=== PATIENT | female | born 1955 | race Caucasian/White ===

== ENCOUNTER 2018-09-08 10:11 | Emergency (ER) | payer BC ==
--- OUTSIDE RECORDS SUMMARY | 2018-09-08 10:13 | XMS REPORT | Clinical Summary ---
:1955 Author Organization [facility] Address [address] [place] [address] Care Team Providers Name Role Phone Rodrick Quijano MD Primary Care Provider Allergies No Known Allergies Medications Medication Sig Dispensed Refills Start Date End Date Status ibandronate (BONIVA) Take 150 mg by 0 Active 150 mg tablet mouth every 30 (thirty) days. Take in AM with glass of water prior to food, don't lie down for 30 minutes. Active Problems Problem Noted Date Ganglion cyst of wrist, left 03/08/2016 Social History Tobacco Use Types Packs/Day Years Used Date Never Assessed Sex Assigned at Date Recorded Not on file Job Start Date Occupation Industry Not on file Not on file Not on file Travel History Travel Start Travel End No recent travel history available. Last Filed Vital Signs Not on file Plan of Treatment Health Maintenance Due Date Last Done Comments CERVICAL CANCER SCREENING 1977 BREAST CANCER SCREENING 2006 COLON CANCER SCREENING 2006 SHINGLES VACCINES (1 of 2) 2006 INFLUENZA VACCINE 03/08/2018 Results Not on fileafter 09/07/2017 Insurance Payer Benefit Plan / Group Subscriber ID Type Phone Address BCBS BCBS CHOICE PPO/FEDERAL EMPL PPO xxxxxxxxxxxx PPO Guarantor Name Account Type Relation to Date of Phone Billing Patient Address [place] Self Personal/Family Self [address] (Home) [facility] [phone] [place] [id number] (Work) Advance Directives Patient has advance care planning documents on file. For more information, please contact:[address] [address]
--- NOTE | 2018-09-08 11:11 | ER ---
Nurse's Notes [facility] Name: S[place] Self Age: 63 yrs Sex: Female : 1955 Arrival Date: 09/08/2018 Time: 10:14 Bed 11 Private MD: Diagnosis: Acute pharyngitis Presentation: 09/08 10:15 Presenting complaint: Patient states: Sore throat for the past 2 days. Denies fever. aj1 Transition of care: patient was not received from another setting of care. Onset of symptoms was September 04, 2018. Risk Assessment: Do you want to hurt yourself or someone else? Patient reports no desire to harm self or others. Initial Sepsis Screen: Does the patient meet any 2 criteria? No. Patient's initial sepsis screen is negative. Does the patient have a suspected source of infection? No. Patient's initial sepsis screen is negative. Care prior to arrival: None. 10:15 Method Of Arrival: Ambulatory aj1 10:15 Acuity: WALT 4 aj1 Triage Assessment: 10:16 General: Appears in no apparent distress. comfortable, Behavior is calm, cooperative, aj1 appropriate for age. Pain: Complains of pain in left aspect of posterior pharynx and right aspect of posterior pharynx Pain currently is 3 out of 10 on a pain scale. Neuro: Level of Consciousness is awake, alert, obeys commands. Cardiovascular: Patient's skin is warm and dry. Respiratory: Airway is patent Respiratory effort is even, unlabored, Respiratory pattern is regular, symmetrical. Historical: - Allergies: 10:16 No Known Allergies; aj1 - Home Meds: 10:16 Boniva oral oral [Active]; aj1 - PMHx: 10:16 Osteoporosis; aj1 - Immunization history:: Flu vaccine is up to date. - Social history:: Smoking status: Patient/guardian denies using tobacco. - Ebola Screening: : Patient denies travel to an Ebola-affected area in the 21 days before illness onset. Screenin:26 Abuse screen: Denies threats or abuse. Denies injuries from another. Nutritional aj1 screening: No deficits noted. Tuberculosis screening: No symptoms or risk factors identified. 10:45 Fall Risk None identified. hb Assessment: 10:26 General: Appears in no apparent distress. comfortable, Behavior is calm, cooperative, aj1 appropriate for age. Pain: Complains of pain in right aspect of posterior pharynx and left aspect of posterior pharynx Pain currently is 3 out of 10 on a pain scale. Quality of pain is described as soreness Pain began 2-3 days ago. Neuro: Level of Consciousness is awake, alert, obeys commands. Cardiovascular: Patient's skin is warm and dry. Respiratory: Airway is patent Respiratory effort is even, unlabored, Respiratory pattern is regular, symmetrical. GI: No signs and/or symptoms were reported involving the gastrointestinal system. : No signs and/or symptoms were reported regarding the genitourinary system. EENT: Reports sore throat. Derm: No signs and/or symptoms reported regarding the dermatologic system. Skin is pink, warm \T\ dry. normal. Musculoskeletal: No signs and/or symptoms reported regarding the musculoskeletal system. Circulation, motion, and sensation intact. 11:15 Reassessment: Patient appears in no apparent distress at this time. No changes from hb previously documented assessment. Patient and/or family updated on plan of care and expected duration. Pain level reassessed. Patient is alert, oriented x 3, equal unlabored respirations, skin warm/dry/pink. Vital Signs: 10:16 BP 138 / 90; Pulse 89; Resp 18; Temp 97.3; Pulse Ox 100% on R/A; Weight 58.97 kg (R); aj1 Height 5 ft. 4 in. (162.56 cm) (R); Pain 3/10; 10:16 Body Mass Index 22.31 (58.97 kg, 162.56 cm) aj1 ED Course: 10:14 Patient arrived in ED. mr 10:16 Triage completed. aj1 10:16 Arm band placed on Patient placed in an exam room. aj1 10:26 Patient has correct armband on for positive identification. Call light in reach. aj1 10:26 No provider procedures requiring assistance completed. aj1 10:27 Strep swab sent to lab. aj1 10:36 Maggy Reed FNP-C is PHCP. kb 10:36 Kris Altamirano MD is Attending Physician. kb 11:04 Throat Culture Sent. dm5 11:15 Patient did not have IV access during this emergency room visit. hb 11:23 Kiera Baker, RN is Primary Nurse. hb Administered Medications: No medications were administered Outcome: 11:10 Discharge ordered by . kb 11:15 Discharged to home ambulatory. hb 11:15 Condition: stable 11:15 Discharge instructions given to patient, Instructed on discharge instructions, follow up and referral plans. medication usage, Demonstrated understanding of instructions, follow-up care, medications. 11:23 Patient left the ED. hb Signatures: Maggy Reed, LOCAL AREA NETWORK ADMINISTRATOR-C JOEY-Adrienne Simpson RN RN aj1 Rona Monreal RN RN [email or web address] Rachel Godinez Heather, RN RN hb Corrections: (The following items were deleted from the chart) 13:52 11:30 Reassessment: Patient appears in no apparent distress at this time. No changes hb from previously documented assessment. Patient and/or family updated on plan of care and expected duration. Pain level reassessed. Patient is alert, oriented x 3, equal unlabored respirations, skin warm/dry/pink. hb
--- NOTE | 2018-09-08 11:11 | EDPHYS ---
Physician Documentation [facility] Name: [place] Self Age: 63 yrs Sex: Female : 1955 Arrival Date: 09/08/2018 Time: 10:14 Bed 11 Private MD: ED Physician Kris Altamirano HPI: 09/08 11:14 This 63 yrs old Female presents to ER via Ambulatory with complaints of Sore kb Throat. 11:14 The patient presents with sore throat. The patient describes throat pain as constant. kb Onset: The symptoms/episode began/occurred 2 day(s) ago. Severity of symptoms: At their worst the symptoms were moderate, in the emergency department the symptoms are unchanged. Modifying factors: The symptoms are alleviated by nothing, the symptoms are aggravated by swallowing, Patient's oral intake status: good. Associated signs and symptoms: Pertinent positives: Sore throat. The patient has not experienced similar symptoms in the past. The patient has not recently seen a physician. Historical: - Allergies: 10:16 No Known Allergies; aj1 - Home Meds: 10:16 Boniva oral oral [Active]; aj1 - PMHx: 10:16 Osteoporosis; aj1 - Immunization history:: Flu vaccine is up to date. - Social history:: Smoking status: Patient/guardian denies using tobacco. - Ebola Screening: : Patient denies travel to an Ebola-affected area in the 21 days before illness onset. ROS: 11:13 Constitutional: Negative for fever, chills, and weight loss, Cardiovascular: Negative kb for chest pain, palpitations, and edema, Respiratory: Negative for shortness of breath, cough, wheezing, and pleuritic chest pain, Abdomen/GI: Negative for abdominal pain, nausea, vomiting, diarrhea, and constipation, MS/Extremity: Negative for injury and deformity, Skin: Negative for injury, rash, and discoloration, Neuro: Negative for headache, weakness, numbness, tingling, and seizure. 11:13 ENT: Positive for sore throat. Exam: 11:13 Constitutional: This is a well developed, well nourished patient who is awake, alert, kb and in no acute distress. Head/Face: Normocephalic, atraumatic. ENT: Nares patent. No nasal discharge, no septal abnormalities noted. Tympanic membranes are normal and external auditory canals are clear. Oropharynx with no redness, swelling, or masses, exudates, or evidence of obstruction, uvula midline. Mucous membranes moist. Neck: Trachea midline, no thyromegaly or masses palpated, and no cervical lymphadenopathy. Supple, full range of motion without nuchal rigidity, or vertebral point tenderness. No Meningismus. Chest/axilla: Normal chest wall appearance and motion. Nontender with no deformity. No lesions are appreciated. Cardiovascular: Regular rate and rhythm with a normal S1 and S2. No gallops, murmurs, or rubs. Normal PMI, no JVD. No pulse deficits. Respiratory: Lungs have equal breath sounds bilaterally, clear to auscultation and percussion. No rales, rhonchi or wheezes noted. No increased work of breathing, no retractions or nasal flaring. Abdomen/GI: Soft, non-tender, with normal bowel sounds. No distension or tympany. No guarding or rebound. No evidence of tenderness throughout. Skin: Warm, dry with normal turgor. Normal color with no rashes, no lesions, and no evidence of cellulitis. MS/ Extremity: Pulses equal, no cyanosis. Neurovascular intact. Full, normal range of motion. Neuro: Awake and alert, GCS 15, oriented to person, place, time, and situation. Cranial nerves II-XII grossly intact. Motor strength 5/5 in all extremities. Sensory grossly intact. Cerebellar exam normal. Normal gait. Vital Signs: 10:16 BP 138 / 90; Pulse 89; Resp 18; Temp 97.3; Pulse Ox 100% on R/A; Weight 58.97 kg (R); aj1 Height 5 ft. 4 in. (162.56 cm) (R); Pain 3/10; 10:16 Body Mass Index 22.31 (58.97 kg, 162.56 cm) aj1 MDM: 10:37 Patient medically screened. kb 11:13 Data reviewed: vital signs, nurses notes. Data interpreted: Pulse oximetry: on room air kb is 100 %. Interpretation: normal. Counseling: I had a detailed discussion with the patient and/or guardian regarding: the historical points, exam findings, and any diagnostic results supporting the discharge/admit diagnosis, lab results, the need for outpatient follow up, a family practitioner, to return to the emergency department if symptoms worsen or persist or if there are any questions or concerns that arise at home. 09/08 10:18 Order name: Strep; Complete Time: 10:37 aj1 09/08 10:36 Order name: Throat Culture EDMS Administered Medications: No medications were administered Disposition: 16:09 Co-signature as Attending Physician, Kris Altamirano MD I agree with the assessment and kdr plan of care. Disposition: 09/08/18 11:10 Discharged to Home. Impression: Acute pharyngitis. - Condition is Stable. - Discharge Instructions: Pharyngitis, [id number], Sore Throat, [id number]. - Medication Reconciliation Form, Thank You Letter, Antibiotic Education, Prescription Opioid Use form. - Follow up: Emergency Department; When: As needed; Reason: Worsening of condition. Follow up: Private Physician; When: 2 - 3 days; Reason: Recheck today's complaints, Continuance of care, Re-evaluation by your physician. Signatures: Dispatcher [employer] EDDE Maggy Reed, JOEY-C CHARGE ACCOUNT CLERK-Ckb Adrienne Guerrero RN RN aj1 Kris Altamirano MD MD [facility] Kiera Baker RN RN hb Corrections: (The following items were deleted from the chart) 11:23 11:10 09/08/2018 11:10 Discharged to Home. Impression: Acute pharyngitis. Condition is hb Stable. Forms are Medication Reconciliation Form, Thank You Letter, Antibiotic Education, Prescription Opioid Use. Follow up: Emergency Department; When: As needed; Reason: Worsening of condition. Follow up: Private Physician; When: 2 - 3 days; Reason: Recheck today's complaints, Continuance of care, Re-evaluation by your physician. kb
== END 2018-09-08 11:23 | disposition home or self-care (01) ==
LOC: ER 10:11
DX: J02.9 Acute pharyngitis, unspecified (principal); M81.0 Age-related osteoporosis without current pathological fracture
CPT/HCPCS: 87070; 87081; 99283

== ENCOUNTER 2022-01-01 11:56 | Emergency (ER) | payer BC ==
--- OUTSIDE RECORDS SUMMARY | 2022-01-01 11:59 | XMS REPORT | Continuity of Care Document ---
:1955 Author Organization [facility] t Address [address] [place] [address] Care Team Providers Name Role Phone Rodrick Quijano MD Primary Care Physician DIOGO Attending Clinician Unavailable ANETA Attending Clinician Unavailable CAMILLE Attending Clinician Unavailable ALISSON Attending Clinician Unavailable Jaison WILDER Attending Clinician Unavailable EZRA Attending Clinician Unavailable JT DENNISON Admitting Clinician Unavailable Payers Payer Name Policy Type Policy Number Effective Date Expiration Date S boaz BCBSTX PPO AND [id number] 2016 00:00:00 OUT OF STATE Problems Condition Condition Condition Status Onset Resolution Last Treating Co mments Source Name Details Category Date Date Treatment Clinician Date Ganglion Ganglion Disease Active Metho di cyst of cyst of 03-08 st wrist, wrist, 00:00: Hospita left left 00 l Allergies, Adverse Reactions, Alerts This patient has no known allergies or adverse reactions. Social History Social Habit Start Date Stop Date Quantity Comments Source Exposure to Not sure [facility] SARS-CoV-2 (event) [facility] Alcohol Frequency History [facility] Health Alcohol Std Drinks History [facility] Alcohol Binge Alcohol intake 2021-07-16 2021-07-16 Current drinker of [facility] 00:00:00 00:00:00 alcohol (finding) Tobacco use and 2021-03-30 2021-03-30 Smokeless tobacco [facility] exposure 00:00:00 00:00:00 non-user Alcohol Comment 2021-03-30 2021-03-30 2 vida daily [facility]:00 Sex Ass[birth year] At [birth year] [facility] 00:00:00 00:00:00 Smoking Status Start Date Stop Date Source Unknown if ever smoked [facility] Never smoked tobacco [facility] Medications Ordered Filled Start Stop Current Ordering Indication Dosage Frequency Signature Comments Components Source Medication Medication Date Date Medication? Clinician (SIG) Name Name No known No No known [facility] 03-30 medication He alth :02: s 29 No known No No known [facility] 03-30 medication He alth :: s 29 traMADol 2020- No [id number] 50mg Q6H Take 1 [facility] (Ultram) 50 6-07 06-18 tablet (50 H ealth MG tablet 00:00: 04:59 mg total) 00 :00 by mouth every 6 (six) hours if needed for severe pain for up to 10 days. traMADol 2020- No [id number] 50mg Q6H Take 1 [facility] (Ultram) 50 6-07 06-18 tablet (50 H ealth MG tablet 00:00: 04:59 mg total) 00 :00 by mouth every 6 (six) hours if needed for severe pain for up to 10 days. HYDROcodone 2020- No [id number] 1{tbl} Q6H Take 1 UT -acetaminop 6-04 06-10 tablet by Donnell villalba ([place]) 00:00: 04:59 mouth 10-325 MG 00 :00 every 6 tablet (six) hours if needed for severe pain for up to 5 days. HYDROcodone 2020- No [id number] 1{tbl} Q6H Take 1 UT -acetaminop 6-04 06-10 tablet by Donnell alth orly ([place]) 00:00: 04:59 mouth 10-325 MG 00 :00 every 6 tablet (six) hours if needed for severe pain for up to 5 days. HYDROcodone 2020- No [id number] 1{tbl} Q6H Take 1 UT -acetaminop 6-04 06-10 tablet by Donnell billingsley hen ([place]) 00:00: 04:59 mouth 10-325 MG 00 :00 every 6 tablet (six) hours if needed for severe pain for up to 5 days. HYDROcodone 2020- No [id number] 1{tbl} Q6H Take 1 UT -acetaminop 6-04 06-10 tablet by He alth hen ([place]) 00:00: 04:59 mouth 10-325 MG 00 :00 every 6 tablet (six) hours if needed for severe pain for up to 5 days. HYDROcodone 2020- No [id number] 1{tbl} Q6H Take 1 UT -acetaminop 6-04 06-10 tablet by He alth hen ([place]) 00:00: 04:59 mouth 10-325 MG 00 :00 every 6 tablet (six) hours if needed for severe pain for up to 5 days. ibandronate 2016-08 Yes 150mg Q30D Take 150 M ethodi ([place]) 2-[address] 150 mg 21:36: mouth [facility]ospita tablet 17 every 30 l (thirty) days. Take in AM with glass of water prior to food, don't lie down for 30 minutes. No known No [facility] No known No [facility] No known No [facility] No known No [facility] No known No [facility] No known No [facility] Vital Signs Vital Name Observation Time Observation Value Comments Source Body height 2021-04-10 19:54:00 162.6 cm [facility] Body weight 2021-04-10 19:54:00 53.797 kg [facility] BMI 2021-04-10 19:54:00 20.36 kg/m2 [facility] Procedures Procedure Date / Time Performed Performing Clinician Jeimy antonio MA BONE DENSITY DXA DUAL ENERGY 2021-04-01 18:20:02 Elizabeth Fox [facility] [id number] MAGNESIUM 2021-03-27 19:41:00 Wanda Fox [facility] PTH, INTACT 2021-03-27 19:41:00 Wanda Fox [facility] PHOSPHORUS 2021-03-27 19:41:00 Wanda Fox [facility] VITAMIN D 25 HYDROXY 2021-03-27 19:41:00 Wanda Fox [facility] ealt ALKALINE PHOSPHATASE, BONE 2021-03-27 19:41:00 Keisha Fox [facility] SPECIFIC PROCOLLAGEN TYPE I INTACT N 2021-03-27 19:41:00 Lily Fox [facility] TERMINAL PROPEPTIDE TSH W/REFLEX TO FT4 2021-03-27 19:41:00 [facility] C-TELOPEPTIDE 2021-03-27 19:41:00 Wanda Fox [facility] Plan of Care Planned Activity Planned Date Details Comments Source Future Scheduled Test INFLUENZA VACCINE [code [facility] = INFLUENZA VACCINE] Future Scheduled Test COVID-19 VACCINE (1) [facility] [code = COVID-19 VACCINE (1)] Future Scheduled Test Screening for malignant [facility] neoplasm of cervix (procedure) [code = 860661088] Future Scheduled Test BREAST CANCER SCREENING [facility] [code = BREAST CANCER SCREENING] Future Scheduled Test COLONOSCOPY SCREENING [facility] [code = COLONOSCOPY SCREENING] Future Scheduled Test SHINGLES VACCINES (#1) [facility] [code = SHINGLES VACCINES (#1)] Encounters Start End Encounter Admission Attending Care Care Encounter Source Date/Time Date/Time Type Type Clinicians Facility Department ID 2021-12-20 Outpatient [facility] [id number] [place] 01:05:09 [id number] [facility] 2021-12-16 Outpatient LIND, [facility] [id number] [place] 09:22:13 JESUS ALBERTO [id number] [facility] 2021-12-15 Outpatient [facility] [id number] [place] 06:51:26 [id number] [facility] 2021-12-14 Outpatient [facility] [id number] [place] 14:06:45 [id number] [facility] 2021-12-01 Outpatient [facility] [id number] [place] 07:49:16 [id number] [facility] 2021-11-30 Outpatient [facility] [id number] [place] 08:35:58 [id number] [facility] 2021-11-09 Outpatient [facility] [id number] [place] 14:30:02 [id number] [facility] 2021-11-04 Outpatient LIND, [facility] [id number] [place] 14:13:43 JESUS ALBERTO [id number] [facility] 2021-07-10 Outpatient ANETA [facility] [id number] [place] 16:22:14 WANDA Cunningham 2021-04-10 Outpatient ANETA, [facility] [id number] [place] 15:30:00 WANDA Cunningham h 2021-03-10 Outpatient [facility] [id number] [place] 09:06:27 Health 2021-02-24 Outpatient ANETA, [facility] [id number] [place] 15:30:59 WANDA Cunningham h 2021-02-05 Outpatient [facility] [id number] [place] 15:58:08 Health 2021-02-04 Outpatient TYRELL-Q [facility] [id number] [place] 01:02:24 [facility] 2021-01-23 Outpatient DIOGO, [facility] [id number] [place] 11:42:24 [facility] 2021-01-09 Outpatient ALISSON, [facility] [id number] [place] 12:02:18 [facility] 2021-01-08 Outpatient [facility] [id number] [place] 15:42:05 [facility] 2021-01-07 Outpatient ANETA, [facility] [id number] [place] 11:13:33 WANDA Cunningham sis 2021-12-16 2021-12-16 Office SAMI Lind [id number] [place] 09:15:00 10:15:22 Visit Jesus Alberto DICKENS [id number] Health S [id number] ORTHOPEDI [id number] CS - TASHA 1 2021-04-10 2021-04-10 Office SAMI Fox [facility] [id number] [place] 14:22:49 15:30:10 Visit Wanda GALEAS [id number] Health MEDICAL [id number] PLAZA 5 [id number] 2021-04-01 2021-04-01 EXT [facility] OP CHRISTIAN Fox MSRDP [id number] [place] 00:00:00 00:00:00 Wanda SHEPPARD [id number] Health [id number] [id number] 2021-03-27 2021-03-27 Office SAMI Fox [facility] [id number] [place] 13:45:15 14:15:17 Visit Wanda GALEAS [id number] Health MEDICAL [id number] PLAZA 2 [id number] 2021-03-20 2021-03-20 Office SAMI Lind [id number] [place] 09:39:34 12:42:05 Visit Jesus Alberto PHYSICIAN [id number] Health S [id number] ORTHOPEDI [id number] CS - TASHA 1 2021-02-06 2021-02-06 Office SAMI Lind [id number] [place] 13:36:40 14:16:31 Visit Jesus Alberto PHYSICIAN [id number] Health S [id number] ORTHOPEDI [id number] CS - TASHA 1 2021-02-05 2021-02-05 Telephone Veronica GALLARDO 1.2.840.114 [id number] [place] 00:00:00 00:00:00 PHYSICIAN jesus [id number] Health Bishnu S [id number] ORTHOPEDI [id number] CS - TASHA 1 2021-01-19 2021-01-19 Telephone SAMI Lind [id number] [place] 00:00:00 00:00:00 Jesus Alberto PHYSICIAN [id number] Health S [id number] ORTHOPEDI [id number] CS - TASHA 1 2021-01-12 2021-01-12 Refill Megan Blackwood UTP 1.2.840.1 [id number] [place] 00:00:00 00:00:00 Megan Blackwood PHYSICIAN [id number] Health S [id number] ORTHOPEDI [id number] CS - TASHA 1 2021-01-09 2021-01-09 Office SAMI Anderson 1.2.840.114 [id number] [place] 10:45:07 12:02:10 Visit Robby PHYSICIAN [id number] Health S 9.2.7.2.686 ORTHOPEDI [id number] CS - TASHA 1 2021-01-09 2021-01-09 Refill Megan Blackwood UTP 1.2.840.1 14 [id number] [place] 00:00:00 00:00:00 Megan Blackwood PHYSICIAN [id number] Health S [id number] ORTHOPEDI [id number] YANNA - TASHA 1 2021-01-03 2021-01-05 Inpatient [place] [address] Memoria 15:58:00 16:15:00 KEELEY Gallardo Memoria l Results Test Description Test Time Test Comments Results Result Comments Source Magnesium 2021-03-28 06:00:00 Test Item Value Reference Range Interpretation Comme nts MAGNESIUM (test code = 27027-0) 1.7 mg/dL 1.5-2.5 RAC (test code = RAC) Performing Organization Information: ? ?Site ID: [facility] ? ?Name: [employer] [facility] ? ?Address: [address] [place] [address] ? ?Director: NICK JI MD [id number] 06:00:00 Test Item Value Reference Range Interpretation Comments PHOSPHATE ( 3.9 mg/dL 2.5-4.5 PHOSPHORUS) (test code = 2777-1) RAC (test code = RAC) Performing Organization Information: ? ?Site ID: [facility] ? ?Name: [employer] [facility] ? ?Address: [address] [place] [address] ? ?Director: NICK JI MD [facility]/REFLEX TO [id number] 06:00:00 Test Item Value Reference Range Interpretation Comments TSH W/REFLEX See_Comment [Automated mes jack] TO FT4 (test The system whic h code = generated this 3016-3) result transmit beatrice reference range : 0.40 - 4.50 mIU /L. The reference r laurei was not used to interpret this result as normal/abnormal . RAC (test Performing code = RAC) Organization Information: ? ?Site ID: [facility] ? ?Name: [employer] [facility] ? ?Address: [address] [place] [address] ? ?Director: NICK JI MD [facility] Hospital[facility]it[facility] D 25 [id number] 06:00:00 Test Item Value Reference Range Interpretation Comments VITAMIN 72 ng/mL 30-100 Vitamin D Statu s ? D,25-OH,TOTAL,I ? ? ? 25-OH Vitamin A (test code = D: Deficiency : ? ? 1988-) ? <20 ng/mLInsufficie ncy: ? 20 - 29 ng/mLOptimal: ? > or = 30 ng/mL For 25-OH Vitamin D testi ng on patients on D2-supplementat ion and patients fo r whom quantitati on of D2 and D3 fractions is required, the QuestAssureD(TM )25- OH VIT D, (D2,D 3), LC/MS/MS is recommended: or yanelis code 08422 (patients >2yrs).See Note 1 Note 1 For additional information, pl ease refer to http://educatio n.4Cable TV esttestbirds. [employer]/ faq/MCF956 (Thi s link is being provided for informational/e duca tional purposes only.) REPORT COMMENT:FASTING :NO RAC (test code Performing = RAC) Organization Information: ? ?Site ID: [facility] ? ?Name: [employer] [facility] ? ?Address: [address] [place] [id number] ? ?Director: NICK JI MD [facility]
[2022-01-01] MEDS ORDERED: ONDANSETRON 4 MG/2 ML VIAL ONE (13:25)
[2022-01-01] MEDS ORDERED: MORPHINE 2 MG/ML SYR ONE (13:25)
--- NOTE | 2022-01-01 14:18 | EDPHYS ---
Physician Documentation [facility] Name: Sapphire Self Age: 66 yrs Sex: Female : 1955 Arrival Date: 01/01/2022 Time: 12:24 Bed 10 Private MD: ED Physician Felipe Guerin HPI: 01/01 14:11 This 66 yrs old Female presents to ER via EMS with complaints of right leg pain. rn 14:11 The patient presents with decreased range of motion, pain. The complaints affect the rn right quadriceps. Onset: The symptoms/episode began/occurred just prior to arrival. Modifying factors: The symptoms are alleviated by nothing. the symptoms are aggravated by movement, weight bearing. Associated signs and symptoms: Pertinent negatives fever, weakness. Severity of symptoms: At their worst the symptoms were moderate, in the emergency department the symptoms are unchanged. The patient has experienced a previous episode. Pt reports walking, felt a pop and immediate pain to right hip/leg. Did not fall. Unable to bear weight. Had surgery with rogelio placed 1 year ago, recent imaging showed not healing well per patient.. Historical: - Allergies: 12:30 No Known Allergies; iw - Home Meds: 12:30 None [Active]; iw - PMHx: 12:30 Osteoporosis; iw - Social history:: Smoking status: unknown. - Family history:: not pertinent. - Hospitalizations: : No recent hospitalization is reported. ROS: 14:11 Constitutional: Negative for fever, chills, and weight loss, Cardiovascular: Negative rn for chest pain, palpitations, and edema, Respiratory: Negative for shortness of breath, cough, wheezing, and pleuritic chest pain, Abdomen/GI: Negative for abdominal pain, nausea, vomiting, diarrhea, and constipation, Back: Negative for injury and pain, MS/Extremity: + right leg pain Skin: Negative for injury, rash, and discoloration, Neuro: Negative for headache, weakness, numbness, tingling, and seizure. Exam: 14:11 Constitutional: This is a well developed, well nourished patient who is awake, alert, rn and in no acute distress. Evaluated in hallway due to lack of bed availability. Cardiovascular: Tachycardic, regular Respiratory: No increased work of breathing, no retractions or nasal flaring. Skin: Warm, dry MS/ Extremity: Pulses equal, no cyanosis. Neurovascular intact. + tenderness proximal right leg with mild swelling, no open wounds. Neuro: Awake and alert, GCS 15 Vital Signs: 12:31 BP 189 / 109; Pulse 108; Resp 16; Pulse Ox 95% on R/A; iw 14:33 BP 173 / 102; Pulse 89; Resp 16; Pulse Ox 96% on R/A; iw 14:56 Weight 56.7 kg; dh3 MDM: 12:24 Patient medically screened. rn 14:11 Differential diagnosis: closed fracture. Data reviewed: vital signs, nurses notes, rn radiologic studies, plain films, and as a result, I will admit patient. Counseling: I had a detailed discussion with the patient and/or guardian regarding: the historical points, exam findings, and any diagnostic results supporting the discharge/admit diagnosis, radiology results, the need to transfer to another facility. Response to treatment: the patient's symptoms have mildly improved after treatment, and as a result, I will admit patient. Admission orders: after a detailed discussion of the patient's condition and case, the admit orders are written by me. 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 More pain medication ordered. Updated patient and went through imaging.. 01/01 12:25 Order name: XRAY Femur RIGHT; Complete Time: 14:39 rn 01/01 14:10 Order name: NPO; Complete Time: 14:22 rn Administered Medications: 13:38 Drug: morphine 2 mg Route: IV; Rate: calculated rate; Site: right antecubital; ap3 13:39 Drug: Zofran (Ondansetron) 4 mg Route: IVP; Site: right antecubital; ap3 14:22 Drug: morphine 4 mg Route: IVP; Infused Over: 4 mins; Site: right antecubital; iw 15:42 Drug: morphine 4 mg Route: IVP; Infused Over: 4 mins; Site: right antecubital; iw Disposition Summary: 01/01/22 14:17 Transfer Ordered Transfer Location: [facility] rn Reason: Higher level of care rn Condition: Stable rn Problem: new rn Symptoms: have improved rn Accepting Physician: (01/01/22 15:59) jb4 Diagnosis - Fracture of shaft of femur rn Forms: - Medication Reconciliation Form rn - SBAR form rn Signatures: Dispatcher [employer] Shobha Carrington RN RN iw Nieto, Roman, MD MD rn Bryson, James, RN RN jb4 Lisa Clarke RN RN ap3 Corrections: (The following items were deleted from the chart) 15:59 14:17 Dr. epps jb4
--- NOTE | 2022-01-01 14:18 | ER ---
Nurse's Notes [facility] Name: Sapphire Self Age: 66 yrs Sex: Female : 1955 Arrival Date: 01/01/2022 Time: 12:24 Bed 10 Private MD: Diagnosis: Fracture of shaft of femur Presentation: 01/01 12:29 Chief complaint: EMS states: previous femur fracture on right , felt her leg pop today iw while walking. Coronavirus screen: At this time, the client does not indicate any symptoms associated with coronavirus-19. Ebola Screen: Patient negative for fever greater than or equal to 101.5 degrees Fahrenheit, and additional compatible Ebola Virus Disease symptoms Patient denies exposure to infectious person. Patient denies travel to an Ebola-affected area in the 21 days before illness onset. No symptoms or risks identified at this time. Initial Sepsis Screen: Does the patient meet any 2 criteria? No. Patient's initial sepsis screen is negative. Does the patient have a suspected source of infection? No. Patient's initial sepsis screen is negative. Risk Assessment: Do you want to hurt yourself or someone else? Patient reports no desire to harm self or others. Onset of symptoms was January 01, 2022. 12:29 Method Of Arrival: EMS: [facility] iw 12:29 Acuity: WALT 3 iw Historical: - Allergies: 12:30 No Known Allergies; iw - Home Meds: 12:30 None [Active]; iw - PMHx: 12:30 Osteoporosis; iw - Social history:: Smoking status: unknown. - Family history:: not pertinent. - Hospitalizations: : No recent hospitalization is reported. Screenin:39 Abuse screen: Denies threats or abuse. Nutritional screening: No deficits noted. ap3 Tuberculosis screening: No symptoms or risk factors identified. Assessment: 14:33 Reassessment: pt medicated with 2nd round of morphine, awaiting transfer. iw 15:07 Reassessment: attempt to call report X 2. iw Vital Signs: 12:31 BP 189 / 109; Pulse 108; Resp 16; Pulse Ox 95% on R/A; iw 14:33 BP 173 / 102; Pulse 89; Resp 16; Pulse Ox 96% on R/A; iw 14:56 Weight 56.7 kg; dh3 ED Course: 12:24 Patient arrived in ED. rn 12:24 Felipe Guerin MD is Attending Physician. rn 12:30 Triage completed. iw 12:31 Arm band placed on. iw 12:59 Shobha Gilbert RN is Primary Nurse. iw 13:38 Inserted saline lock: 20 gauge in right antecubital area, using aseptic technique. ap3 13:39 Patient has correct armband on for positive identification. Bed in low position. Call ap3 light in reach. Side rails up X 1. Adult w/ patient. Door closed. Noise minimized. 14:21 XRAY Femur RIGHT In Process Unspecified. EDMS 14:57 ER to ER transfer to [facility] initiated \T\1420 with acceptance \T\1441. 3 15:20 No provider procedures requiring assistance completed. iw 15:32 [facility] accepted patient transfer to facility. 3 Administered Medications: 13:38 Drug: morphine 2 mg Route: IV; Rate: calculated rate; Site: right antecubital; ap3 13:39 Drug: Zofran (Ondansetron) 4 mg Route: IVP; Site: right antecubital; ap3 14:22 Drug: morphine 4 mg Route: IVP; Infused Over: 4 mins; Site: right antecubital; iw 15:42 Drug: morphine 4 mg Route: IVP; Infused Over: 4 mins; Site: right antecubital; iw Outcome: 14:17 ER care complete, transfer ordered by . rn 15:59 Patient left the ED. jb4 Signatures: Dispatcher [employer] EDMS Shobha Gilbert RN RN Felipe Guerin MD MD rn Bryson, James, RN RN [facility] Patricia Chauhan [facility] Lisa Clarke RN RN ap3
[2022-01-01] MEDS ORDERED: MORPHINE 4 MG/ML SYR ONE ×2 (14:20→15:38)
--- NOTE | 2022-01-01 14:37 | RAD REPORT ---
EXAM DESCRIPTION: RAD - Femur Right - 01/01/2022 2:19 pm CLINICAL HISTORY: surgery 1 year ago, not healing well, pop today, hurts walk COMPARISON: No comparisons FINDINGS: Sub trochanteric right proximal femur fracture, also with fracture of the stem of the intr amedullary rogelio. No dislocation. The fracture is displaced and angulated. IMPRESSION: Right-sided sub trochanteric fracture which includes a fracture of the intramedullary ro d.
[2022-01-01 16:06] VITALS: BP 173/102; O2SAT 96
== END 2022-01-01 15:59 | disposition short-term general hospital (02) ==
LOC: ER 11:56
DX: S72.391A Other fracture of shaft of right femur, initial encounter for closed fracture (principal)
CPT/HCPCS: 73552; 96375; 96374; 99284; J2270; J2405